=== PATIENT | male | born 1955 | race Caucasian/White ===

== ENCOUNTER 2019-12-08 12:17 | Outpatient (CLI) | payer MEDICARE, OTHER, SELFPAY ==
[2019-12-08] VITALS (8 sets, daily range): BP systolic 130–166; BP diastolic 77–98; PULSE 50–62; RESP 16; TEMP 36.4; O2SAT 96–100
--- NOTE | 2019-12-08 12:21 | DI.RAD.S_ITS ---
PROCEDURE: PAIN L/S FACET INJ/BLK 1ST CLAIRE COMPARISON: None. INDICATIONS: SPONDYLOSIS FINDINGS: Fluoroscopic spot filming was performed to verify placement of spinal needles at the L5-S1 level(s), as labeled on the films. Appropriate location(s) of the needle tip(s) was confirmed by injection of iodinated contrast. Dictated by: Christos Bay M.D. on 12/08/2019 at 14:55 Approved by: Christos Bay M.D. on 12/08/2019 at 14:55
[2019-12-08] MEDS: MIDAZOLAM 5 MG/5 ML VIAL IV (13:10)
[2019-12-08] MEDS: fentaNYL 100 MCG/2 ML INJ 50 MCG IV (13:11)
[2019-12-08] MEDS: IOPAMIDOL 15 ML VIAL 3 ML INJ (13:15)
[2019-12-08] MEDS: BETAMETHASONE 30 MG/5 ML MDV 12 MG INJ (13:16)
[2019-12-08] MEDS: BUPIVACAINE 0.5% (PF) VIAL 2 ML INJ (13:16)
--- NOTE | 2019-12-08 13:18 | PC.NURSE ---
ASSISTING PT OFF TABLE AND TRANSPORTING TO POST PROC AREA IN STABLE CONDITION. PASSING RN CARE OF PT OFF TO MARSHALL Baer RN.
--- NOTE | 2019-12-08 13:20 | P.PCN_ITS ---
Procedures Date/Time Date of procedure: 12/08/19 Time of procedure: 13:20 General Procedure description: PREOP DIAGNOSIS 1. FACET ARTHROPATHY, 2. AXIAL LBP, 3. MULTILEVEL DDD, POST OP DIAGNOSIS 1. FACET ARTHROPATHY, 2. AXIAL LBP, 3. MULTILEVEL DDD, PROCEDURES 1. FLUORSCOPICALLY GUIDED CONTRAST CONTROLLED FACET JOINT INJECTIONS BILATERAL L5/S1 PHUSICIAN: Shola Renner, DO INDICATIONS Herbert is referred by Dr. Rodrigez for treatment of Axial LBP FINDINGS Multilevel Facet Arthropathy with Clinically significant axial LBP DESCRIPTION OF PROCEDURE Fluoroscopically guided, contrast-controlled bilateral L5/S1 facet joint i njections. Following review of allergy and review of potential side effects and complications, including, but not necessarily limited to, infection, allergic reaction, local tissue breakdown, stroke, temporary or permanent nerve injury, paralysis, and possible , the patient indicated that the patient understood and agreed to proceed. An informed consent document was signed by the patient, witnessed by a nurse, and placed in the patient's chart. Additionally, other treatment options including medications, modalities, and physical therapy were reviewed with the patient. After review of previous anaesthesic history and IV conscious sedation the patient was deemed safe to proceed with todays procedure with IV conscious sedation as ASA class II designation. Safety time-out was performed to confirm patient ID, procedure to be performed and site of procedure. IV sedation was accomplished with a combination of 2mg of Versed and 50mcg of Fentanyl administered by the RN after DO order, titrated to patient comfort during the course of the procedure while the patient remained responsive to all verbal commands In the prone position, following sterile prep and drape of the lumbar region, the posterior aspect of the L5/S1 facet joints were identified fluoroscopically. The skin was anesthetized via a 25-gauge 1.5-inch needle with 1% lidocaine solution into the corresponding facet joints. At this point, a 22-gauge 5-inch spinal needle was atraumatically introduced and advanced under fluoroscopic guidance into the corresponding facet joints. Following negative aspiration, injections of approximately 0.2cc of Isovue 200 confirmed interarticular placement without vascular uptake. The identical procedure was then performed at the L5/S1 facet joints on the left. Radiological data, including multiple fluoroscopic views of the lumbosacral spine, reveal a spinal needle at the L5/S1 facet joints bilaterally. Subsequent views show flow of contrast material both superiorly and inferiorly within the joint space without vascular or intrathecal uptake. At this point, a total of 0.5cc including a mixture of 0.25cc Marcaine and 0.25cc betamethasone was injected without complication into each of the corresponding facet joints. The patient tolerated the procedure well without signs or symptoms of complications prior to transfer to the recovery area continued monitoring without incident. The patient was then transferred to the recovery area where they were observed for an appropriate period of time after the injection. The patient reported a VAS score of 7 prior to the procedure and a post-procedure VAS of 0. Total Fluoroscopy Time: 8 seconds Total conscious sedation time: 24 min POST OP INSTRUCTIONS The patient was provided a Pain Log to continue to record their response to the target-specific procedure prior to follow-up visit with their referring physician. Additionally, specific post-injection care instructions and a contact number to our office were provided if concerns arise regarding possible complications associated with the procedure are suspected. Shola Renner, Complications: none
--- NOTE | 2019-12-08 14:13 | PC.NURSE ---
1330: Received patient post procedure by Shante VOGEL via WC, awake, alert, and pleasantly talkative. VSS upon arrival, on RA. Transferred to chair with SBA.
--- NOTE | 2019-12-09 16:52 | PC.NURSE ---
FOLLOW UP CALL MADE. PT STATES HE FEELS GOOD AND STATES THAT PAIN IN DECREASED. DENIES QUESTIONS/CONCERNS. ENCOURAGED PT TO CONTINUE WITH PAIN LOG AND TO BRING IT TO FOLLOW-UP APPT. PT VERBALIZED UNDERSTANDING.
== END 2019-12-08 13:50 | disposition home or self-care (01) ==
LOC: RAD 12:21
PROVIDERS: PCP Family Medicine; Referring Provider Physical Medicine & Rehabilitation; Visit Provider Physical Medicine & Rehabilitation
DX: M47.817 Spondylosis without myelopathy or radiculopathy, lumbosacral region (principal); M54.5 Low back pain; M51.37 Other intervertebral disc degeneration, lumbosacral region
CPT/HCPCS: 64493; 99152; J0702; J2250; J3010

== ENCOUNTER → 2020-11-10 08:55 | Outpatient (CLI) | payer MEDICARE, OTHER, SELFPAY ==
--- NOTE | 2020-11-10 | DI.RAD.S_ITS ---
PROCEDURE: FL UPPER GI SMALL BOWEL W AIR COMPARISON: None. INDICATIONS: Gastroparesis FINDINGS: Card Puncher topogram demonstrates lower lumbar spine fixation hardware. Esophagus follows normal course has normal contour. No esophageal mass or stricture. Esophageal mucosa is normal in appearance. No hiatal hernia identified. Stomach has normal contours. Liquid contrast material readily passes from the stomach into small bowel. Gastric and duodenal mucosa is normal in appearance. Contrast material transit time through the small bowel is normal at approximately 50-60 minutes. Small bowel loops have normal caliber. No small bowel loop fold thickening. Terminal ileum is normal in appearance. IMPRESSION: Normal examination without evidence of delayed passage of liquid contrast material through stomach and small bowel. Dictated by: Liliam Reyes MD, PhD on 11/10/2020 at 11:46 Approved by: Liliam Reyes MD, PhD on 11/10/2020 at 11:50
== END ==
PROVIDERS: PCP Family Medicine; Referring Provider Family Medicine; Visit Provider Family Medicine
DX: K31.84 Gastroparesis (principal)
CPT/HCPCS: 74246; 74248